=== PATIENT | female | born 1970 | race Caucasian/White ===

== ENCOUNTER → 2016-02-26 | Outpatient (CLI) | payer MEDICARE, MEDICAID ==
[~2016-02-26] MED LIST: 'PARAFON FORTE500 M1 PO; ADDERALL5 MG PO; AUGMENTIN 875875 MG PO; BUSPIRONE10 MG PO; ESTRAC1 PO; FLEXERIL5 MG PO; HYDR12.5C PO; HYDROCODONE BIT1 T11 PO; NEURONTIN300 MG PO; PERCOCET 325 MG1 TA2 PO; PREDNISONE10 MG PO; PROVERA2.5 MG PO; SAPHRIS10 MG SL; SAPHRIS5 M1 SL; SEROQUEL100 MG PO; SOMA350 MG PO; TORADOL10 MG PO; VALIUM10 MG PO; VICO75300 PO; XANAX1 MG PO; ZESTRIL10 MG PO
== END | disposition home or self-care (01) ==
LOC: CT 02-19 09:00
DX: N28.1 Cyst of kidney, acquired (principal); R10.2 Pelvic and perineal pain; R10.9 Unspecified abdominal pain; R10.12 Left upper quadrant pain; Z90.49 Acquired absence of other specified parts of digestive tract; I10 Essential (primary) hypertension; Q89.09 Congenital malformations of spleen

== ENCOUNTER 2017-01-13 17:21 | Emergency (ER) | payer MEDICARE, MEDICAID ==
[~2017-01-13] VITALS: Ht 165.1 cm; Wt 56.7 kg
[2017-01-13 18:15] VITALS: BP 184/88
== END 2017-01-13 18:54 | disposition home or self-care (01) ==
LOC: ED 17:21
DX: R51 Headache (principal); R03.0 Elevated blood-pressure reading, without diagnosis of hypertension; F17.200 Nicotine dependence, unspecified, uncomplicated; J02.9 Acute pharyngitis, unspecified; Z79.899 Other long term (current) drug therapy; Z88.8 Allergy status to other drugs, medicaments and biological substances

== ENCOUNTER → 2018-04-20 | Outpatient (CLI) | payer OTHER ==
[2018-04-20 09:53] LABS: HEMATOCRIT 44.3 % (37.0-47.0); HEMOGLOBIN 14.8 g/dl (12.0-16.0); MEAN CELL VOLUME 92.3 fl (81.0-99.0); MEAN CORPUSCULAR HGB 30.8 pg (27.0-31.0); MEAN CORPUSCULAR HGB CONC 33.4 g/dl (33.0-37.0); MEAN PLATELET VOLUME 9.8 fl (9.6-12.3); RED BLOOD COUNT 4.8 10*6/uL (4.10-5.10); RED CELL DISTRI WIDTH 13.2 % (0-14.5); WHITE BLOOD COUNT 12.7 10*3/uL (4.8-10.8)
[2018-04-20 10:28] LABS: ALBUMIN 3.8 gm/dl (3.1-4.5); BUN 8 mg/dl (7-24); CHLORIDE 105 mmol/L (98-107); POTASSIUM 3.6 mmol/L (3.5-5.1); SGOT/AST 14 IU/L (3-35); SODIUM 141 mmol/L (136-145)
[2018-04-20 10:37] LABS: ALKALINE PHOSPHATASE 82 U/L (45-117); CHOLESTEROL 179 mg/dL (<200); CREATININE 0.77 mg/dL (0.55-1.02); FREE T4 0.91 ng/dl (0.76-1.46); HDL CHOLESTEROL 54 mg/dl (40-60); LDL CHOLESTEROL 106 mg/dL (9-159); SGPT/ALT 17 U/L (12-78); TOTAL PROTEIN 7.6 gm/dL (6.4-8.2); TRIGLYCERIDES 95 mg/dl (<150); VLDL CHOLESTEROL 19 mg/dL (6-40)
[2018-04-20 11:17] LABS: VITAMIN D, 25-HYDROXY 12.5 ng/mL (30-100)
[2018-04-21 07:06] LABS: HEPATITIS B SURFACE AG Negative (Negative); HEPATITIS C VIRUS ANTIBODY <0.1 s/co (0.0-0.9); RHEUMATOID ARTHRITIS FACTOR <10.0 IU/mL (0.0-13.9)
== END | disposition home or self-care (01) ==
LOC: LAB 09:29
PROVIDERS: Family Medicine
DX: E55.9 Vitamin D deficiency, unspecified (principal); E78.00 Pure hypercholesterolemia, unspecified; R53.83 Other fatigue; R51 Headache; M79.7 Fibromyalgia; M25.50 Pain in unspecified joint

== ENCOUNTER → 2018-05-26 | Outpatient (CLI) | payer MEDICARE, MEDICAID ==
[2018-05-26 13:19] LABS: HEMATOCRIT 42.3 % (37.0-47.0); MEAN CELL VOLUME 92.4 fl (81.0-99.0); MEAN CORPUSCULAR HGB 30.6 pg (27.0-31.0); MEAN CORPUSCULAR HGB CONC 33.1 g/dl (33.0-37.0); MEAN PLATELET VOLUME 10.1 fl (9.6-12.3); RED BLOOD COUNT 4.58 10*6/uL (4.10-5.10); RED CELL DISTRI WIDTH 12.8 % (0-14.5); WHITE BLOOD COUNT 10.7 10*3/uL (4.8-10.8)
== END | disposition home or self-care (01) ==
LOC: LAB 12:20
PROVIDERS: Family Medicine
DX: D72.829 Elevated white blood cell count, unspecified (principal)